=== PATIENT | female | born 1935 | race Two or more races ===

== ENCOUNTER 2023-02-18 00:18 | Inpatient (IN) | payer OTHER ==
[~2023-02-18] VITALS: Ht 154.9 cm; Wt 74.8 kg
[2023-02-18] MEDS ORDERED: ONDANSETRON HCL/PF 4 MG/2 ML VIAL ONE (01:57)
[2023-02-18] MEDS ORDERED: MORPHINE SULFATE INJ 4 MG/ML DISP.SYRIN ONE (01:57)
[2023-02-18] MEDS ORDERED: ONDANSETRON HCL/PF 4 MG/2 ML VIAL IV ONE (02:00)
[2023-02-18] MEDS ORDERED: MORPHINE SULFATE INJ 2 MG/ML DISP.SYRIN IV ONE (02:00)
[2023-02-18 05:44] LABS: BASOPHILS % (AUTO) 0.2 % (0.0-2.0); HEMATOCRIT 35 % (33-45); HEMOGLOBIN 11.4 g/dL (11.5-14.8); LYMPHOCYTES # (AUTO) 0.4 K/uL (0.8-4.8); LYMPHOCYTES % (AUTO) 2.6 % (20.0-44.0); MEAN CORPUSCULAR HEMOGLOBIN 31 PG (26.0-33.0); MEAN CORPUSCULAR HGB CONC 33 g/dl (31.0-36.0); MEAN CORPUSCULAR VOLUME 93 fL (82-100); MONOCYTES # (AUTO) 0.7 K/uL (0.1-1.30); MONOCYTES % (AUTO) 4.3 % (2.0-12.0); NEUTROPHILS # (AUTO) 14.3 K/uL (1.8-8.9); NEUTROPHILS % (AUTO) 92.9 % (43.0-81.0); PLATELET COUNT (AUTO) 130 K/uL (150-450); RED BLOOD CELL COUNT(AUTO) 3.73 MIL/uL (4.0-5.2); RED CELL DISTRIBUTION WIDTH 14.8 % (11.5-15.0); WHITE BLOOD COUNT (AUTO) 15.3 K/uL (4.3-11.0)
[2023-02-18 05:46] LABS: CALCIUM, SERUM 9.2 mg/dL (8.5-10.1); CARBON DIOXIDE 25 mmol/L (21-32); CHLORIDE 106 mmol/L (98-107); CREATININE 1.5 mg/dL (0.6-1.3); GLUCOSE 153 mg/dL (74-106); POTASSIUM 4.6 mmol/L (3.5-5.1); SODIUM SERUM 142 mmol/L (136-145); UREA NITROGEN, BLOOD 42 mg/dL (7-18)
[2023-02-18 05:52] LABS: INR 1.08 (0.91-1.10); PARTIAL THROMBOPLASTIN TIME 21.3 SEC (24.3-34.3); PROTHROMBIN TIME 11.4 SECS (9.2-11.1)
[2023-02-18] MEDS ORDERED: IOHEXOL-300 100 ML VIAL IV ONE (06:27)
[2023-02-18] MEDS ORDERED: IV NS 0.9% 1,000 ML IV PRN (06:30)
[2023-02-18] MEDS ORDERED: ASCO100058 PO (09:40)
[2023-02-18] MEDS ORDERED: MV-M1TAB57 PO (09:40)
[2023-02-18] MEDS ORDERED: VITA1TAB20 PO (09:40)
[2023-02-18] MEDS ORDERED: SIMV5TAB59 PO (09:40)
[2023-02-18] MEDS ORDERED: CHOL3000 PO (09:40)
[2023-02-18] MEDS ORDERED: MORPHINE SULFATE INJ 2 MG/ML DISP.SYRIN IV PRN ×2 (11:00→12:30)
[2023-02-18] MEDS ORDERED: MORPHINE SULFATE INJ 2 MG/ML DISP.SYRIN ONE (11:08)
[2023-02-18 11:35] VITALS: O2SAT 94
[2023-02-18 12:00] VITALS: BP 100/50; TEMP 97.9; O2SAT 98
[2023-02-18] MEDS: IV 1/2NS 1000 ML 1,000 ML IV PRN (12:19)
[2023-02-18] MEDS ORDERED: ACETAMINOPHEN 325 MG TABLET PO PRN (12:30)
[2023-02-18] MEDS ORDERED: Z GUARD REMEDY 4 OZ OINT TP PRN (12:30)
[2023-02-18] MEDS ORDERED: MAGNESIUM HYDROXIDE 30 ML UDC PO PRN (12:30)
[2023-02-18] MEDS ORDERED: MAG HYDROX/AL HYDROX/SIMETH 30 ML UDC PO PRN (12:30)
[2023-02-18] MEDS ORDERED: ONDANSETRON HCL/PF 4 MG/2 ML VIAL IVP PRN (12:30)
[2023-02-18] MEDS ORDERED: ZOLPIDEM TARTRATE 5 MG TABLET PO PRN (12:30)
[2023-02-18 16:00] VITALS: BP 100/47; TEMP 97.9; O2SAT 97
[2023-02-18] MEDS: HYDROCODONE/APAP 5/325MG TABLET PO PRN (18:42)
[2023-02-18 20:27] VITALS: BP 98/58; TEMP 98; O2SAT 95
[2023-02-18] MEDS ORDERED: SIMVASTATIN 20 MG TABLET PO SCH (22:00)
[2023-02-19] MEDS: IV 1/2NS 1000 ML 1,000 ML IV PRN (01:05)
[2023-02-19 06:06] LABS: BASOPHILS % (AUTO) 0.1 % (0.0-2.0); EOSINOPHILS # (AUTO) 0.1 K/uL (0.0-0.7); EOSINOPHILS % (AUTO) 0.7 % (0.0-6.0); HEMATOCRIT 25 % (33-45); HEMOGLOBIN 8.5 g/dL (11.5-14.8); LYMPHOCYTES # (AUTO) 0.9 K/uL (0.8-4.8); LYMPHOCYTES % (AUTO) 9.2 % (20.0-44.0); MEAN CORPUSCULAR HEMOGLOBIN 32 PG (26.0-33.0); MEAN CORPUSCULAR HGB CONC 34 g/dl (31.0-36.0); MEAN CORPUSCULAR VOLUME 93 fL (82-100); MONOCYTES # (AUTO) 0.6 K/uL (0.1-1.30); MONOCYTES % (AUTO) 5.8 % (2.0-12.0); NEUTROPHILS # (AUTO) 8.6 K/uL (1.8-8.9); NEUTROPHILS % (AUTO) 84.2 % (43.0-81.0); PLATELET COUNT (AUTO) 89 K/uL (150-450); RED BLOOD CELL COUNT(AUTO) 2.69 MIL/uL (4.0-5.2); RED CELL DISTRIBUTION WIDTH 14.6 % (11.5-15.0); WHITE BLOOD COUNT (AUTO) 10.2 K/uL (4.3-11.0)
[2023-02-19 06:22] LABS: CALCIUM, SERUM 8.2 mg/dL (8.5-10.1); CARBON DIOXIDE 27 mmol/L (21-32); CHLORIDE 103 mmol/L (98-107); CREATININE 0.6 mg/dL (0.6-1.3); GLUCOSE 126 mg/dL (74-106); PHOSPHORUS 2.7 mg/dL (2.5-4.9); POTASSIUM 4.4 mmol/L (3.5-5.1); SODIUM SERUM 137 mmol/L (136-145); UREA NITROGEN, BLOOD 37 mg/dL (7-18)
[2023-02-19 06:43] LABS: THYROID STIMULATING HORMONE 1.766 uIU/mL (0.358-3.74)
[2023-02-19] MEDS ORDERED: PANTOPRAZOLE 40 MG TABLET.DR PO SCH (07:30)
[2023-02-19 08:00] VITALS: BP 116/52; TEMP 98.2; O2SAT 96
[2023-02-19] MEDS ORDERED: MULTIVITAMINS,THERAGRAN 1 UDTAB TABLET PO SCH (09:00)
[2023-02-19] MEDS ORDERED: VITAMIN B COMP W-C 1 TAB TABLET PO SCH (09:00)
[2023-02-19] MEDS ORDERED: ASCORBIC ACID 500 MG TABLET PO SCH (09:00)
[2023-02-19] MEDS ORDERED: CHOLECALCIFEROL 1,000 UNIT TABLET (VIT D3) PO SCH (09:00)
[2023-02-19 09:15] LABS: BAND % (MANUAL) 2 % (0.0-5.0); LYMPHOCYTES % (MANUAL) 11 % (16-48); MONOCYTES % (MANUAL) 4 % (0-11.0); NEUTROPHILS % (MANUAL) 83 (42-76); PLATELET ESTIMATE DECREASED
[2023-02-19 16:00] VITALS: BP 121/87; TEMP 97.2; O2SAT 95
[2023-02-19 16:32] LABS: APPEARANCE,URINE CLEAR (CLEAR); BILIRUBIN,URINE NEGATIVE (NEGATIVE); BLOOD, URINE 3+ Ery/uL (NEGATIVE); COLOR,URINE YELLOW (YELLOW); KETONES,URINE NEGATIVE (NEGATIVE); LEUKOCYTE ESTERASE ,URINE NEGATIVE (NEGATIVE); NITRITE, URINE NEGATIVE (NEGATIVE); PH,URINE 5.5 (5.0-8.0); PROTEIN,URINE NEGATIVE (NEGATIVE); UGLUCOSE NEGATIVE (NEGATIVE); UROBILINOGEN,URINE 0.2 EU/dL (0.2)
[2023-02-19 16:47] LABS: CREATININE, URINE 47.7 MG/DL (30.0-125.0); URINE TOTAL PROTEIN 26.5 mg/dL (0-11.9)
[2023-02-19 17:04] LABS: RBC,URINE 51-80 /HPF (0-2)
[2023-02-19 17:05] LABS: ADD URINE CULTURE YES; BACTERIA,URINE Moderate /HPF (None Seen); WBC,URINE 0-2 /HPF (0-3)
[2023-02-19 17:43] LABS: EOSINOPHIL,URINE None Seen
[2023-02-19] MEDS: HYDROCODONE/APAP 5/325MG TABLET PO PRN (17:49)
== END 2023-02-19 18:29 | disposition short-term general hospital (02) | DRG 535 ==
LOC: ER 00:32 → TRANSITION 09:36 → MED 10:56
PROVIDERS: ADMIT Student in an Organized Health Care Education/Training Program; ATTEND Student in an Organized Health Care Education/Training Program
DX: S32.810A Multiple fractures of pelvis with stable disruption of pelvic ring, initial encounter for closed fracture (principal); N17.0 Acute kidney failure with tubular necrosis; W01.0XXA Fall on same level from slipping, tripping and stumbling without subsequent striking against object, initial encounter; Y92.488 Other paved roadways as the place of occurrence of the external cause; E78.5 Hyperlipidemia, unspecified; Z20.822 Contact with and (suspected) exposure to COVID-19; Z79.899 Other long term (current) drug therapy; D69.6 Thrombocytopenia, unspecified; D64.9 Anemia, unspecified; M89.8X9 Other specified disorders of bone, unspecified site
CPT/HCPCS: 36415; 70450-TC; 72125-TC; 72193-TC; 80048-TC; 81001; 82570-TC; 83735-TC; 84100-TC; 84300-TC; 84443-TC; 85025-TC; 85730-TC; 87081-TC; 87086-TC; A4223; A6403; G0378; J2270; J2405; J3490; J7030; Q9967